=== PATIENT | male | born 2000 | race Hispanic/Latino ===

== ENCOUNTER 2020-08-08 23:52 | Emergency (ER) | payer BC ==
[2020-08-09] MEDS ORDERED: NA BORATE/BORIC AC/H2O/NACL 120 ML OPHTH IRRIG SOLN ONE
[2020-08-09] MEDS ORDERED: TETRACAINE HCL 0.5% 4 ML OPHTH SOLN ONE
== END 2020-08-09 00:45 | disposition home or self-care (01) ==
LOC: EDH 23:52
DX: H02.89 Other specified disorders of eyelid (principal)